=== PATIENT | female | born 2000 ===

== ENCOUNTER 2021-02-27 16:07 | Emergency (ER) | payer MEDICAID ==
[2021-02-27 16:14] VITALS: BP 139/90
[2021-02-27] MEDS ORDERED: MORPHINE 2 MG/1 ML INJ IV ONE (18:02)
[2021-02-27] MEDS ORDERED: SODIUM CHLORIDE 0.9% 1000 ML 1,000 ML IV ONE (18:02)
[2021-02-27] MEDS ORDERED: ONDANSETRON 4 MG/2 ML INJ IV ONE (18:02)
[2021-02-27] MEDS ORDERED: FAMOTIDINE 20 MG TAB PO ONE (18:02)
--- NOTE | 2021-02-27 18:05 | Emergency Department Report ---
ED N/V/D HPI - General Chief complaint: Nausea/Vomiting/Diarrhea Stated complaint: VOMITING Time Seen by Provider: 02/27/21 17:45 Source: EMS Mode of arrival: Ambulatory Limitations: No Limitations - History of Present Illness Initial comments: 20-year-old female who has no significant past medical history presents to the ER today with complaints of nausea, vomiting and diarrhea. She states that her symptoms started 3 days ago. She states that her son recently got over a stomach virus and thinks she got a stomach virus from him. She states that she has been having multiple episodes of vomiting and diarrhea. She states that she is unable to keep anything down. She reports epigastric pain. She denies any fever or chills. She denies any UTI symptoms. She states that her last menstrual cycle ended 2 days ago. She denies any recent travel, or bad food intake. She is status post cholecystectomy. MD complaint: nausea, vomiting, diarrhea, abdominal pain -: Gradual, days(s) (3) - Related Data Previous Rx's Medication Instructions Recorded Last Taken Type Famotidine [Pepcid] 20 mg PO BID #30 tablet 02/27/21 Unknown Rx Fluconazole [Diflucan TAB] 200 mg PO QDAY #1 tablet 02/27/21 Unknown Rx Hyoscyamine Subl [Levsin Sl 0.125 0.125 mg SL Q6HR PRN #20 tab 02/27/21 Unknown Rx TAB] Ondansetron [Zofran Odt] 4 mg PO Q8HR #15 tab.rapdis 02/27/21 Unknown Rx Allergies Allergy/AdvReac Type Severity Reaction Status Date / Time No Known Allergies Allergy Verified 02/27/21 16:14 ED Review of Systems ROS: Stated complaint: VOMITING Other details as noted in HPI Comment: All other systems reviewed and negative Constitutional: denies: chills, fever Eyes: denies: eye pain, eye discharge, vision change ENT: denies: ear pain, throat pain Respiratory: denies: cough, shortness of breath, SOB with exertion, SOB at rest, wheezing Cardiovascular: denies: chest pain, palpitations Gastrointestinal: abdominal pain, nausea, vomiting, diarrhea. denies: constipation, hematemesis, melena, hematochezia Genitourinary: denies: urgency, dysuria, frequency, hematuria, discharge, abnormal menses, dyspareunia Musculoskeletal: denies: back pain, joint swelling, arthralgia Skin: denies: rash, lesions, change in color, change in hair/nails, pruritus Neurological: denies: headache, weakness, paresthesias, confusion, abnormal gait, vertigo Psychiatric: denies: anxiety, depression, auditory hallucinations, visual hallucinations, homicidal thoughts, suicidal thoughts Hematological/Lymphatic: denies: easy bleeding, easy bruising, swollen glands ED Past Medical Hx - Medications Home Medications: Home Medications Medication Instructions Recorded Confirmed Last Taken Type Famotidine [Pepcid] 20 mg PO BID #30 tablet 02/27/21 Unknown Rx Fluconazole [Diflucan TAB] 200 mg PO QDAY #1 tablet 02/27/21 Unknown Rx Hyoscyamine Subl [Levsin Sl 0.125 0.125 mg SL Q6HR PRN #20 tab 02/27/21 Unknown Rx TAB] Ondansetron [Zofran Odt] 4 mg PO Q8HR #15 tab.rapdis 02/27/21 Unknown Rx ED Physical Exam - General Limitations: No Limitations General appearance: alert, in distress (patient appears uncomfortable) - Head Head exam: Present: atraumatic, normocephalic, normal inspection - Eye Eye exam: Present: normal appearance, PERRL, EOMI Pupils: Present: normal accommodation - ENT ENT exam: Present: normal exam, mucous membranes dry (mild ) - Neck Neck exam: Present: normal inspection, full ROM - Respiratory Respiratory exam: Present: normal lung sounds bilaterally. Absent: respiratory distress, wheezes, rales, rhonchi, stridor - Cardiovascular Cardiovascular Exam: Present: regular rate, normal rhythm, normal heart sounds - GI/Abdominal GI/Abdominal exam: Present: soft, tenderness (epigastric, mild ). Absent: distended, guarding, rebound - Neurological Exam Neurological exam: Present: alert, oriented X3, CN II-XII intact, normal gait - Psychiatric Psychiatric exam: Present: normal affect, normal mood ED Course Vital Signs 02/27/21 16:13 Temperature 98.4 F Pulse Rate 59 L Respiratory 16 Rate Blood Pressure 139/90 [Right] O2 Sat by Pulse 99 Oximetry ED Medical Decision Making - Lab Data Result diagrams: 02/27/21 18:06 02/27/21 18:06 - Medical Decision Making 2127: Patient now tolerating oral fluids without any further vomiting after the fluids and meds.. She has a nonsurgical abdominal exam. She is not toxic or significantly ill-appearing. She is neurologically intact with a normal gait. She is hemodynamically stable with stable vital signs. Labs reviewed --CBC unremarkable. CMP consistent with some mild dehydration but otherwise unremarkable. Urinalysis shows 15 WBCs but no bacteria, no leukocytes or nitrites. It does show yeast. Discussed all results with patient. Patient will be treated for gastroenteritis and discharged home with medication to help with symptoms including Diflucan for yeast infection. Patient instructed to follow a bland diet and continue drinking lots of fluids. At this time there is no indication for any continued emergency treatment, additional testing or admission. Patient expressed understanding for instructions and agree with plan. Patient was stable at time of discharge. Critical care attestation.: If time is entered above; I have spent that time in minutes in the direct care of this critically ill patient, excluding procedure time. ED Disposition Clinical Impression: Gastroenteritis, Dehydration, Yeast vaginitis Disposition: HOME / SELF CARE / HOMELESS Is pt being admited?: No Does the pt Need Aspirin: No Condition: Stable Instructions: Viral Gastroenteritis, Adult, Dehydration, Adult, [id number], Vaginal Yeast Infection, Adult Additional Instructions: Recommend that you take the Zofran as prescribed to help with any nausea and vomiting. Take the Levsin to help with stomach cramps as well as the Pepcid. I recommend that you try to continue increasing your intake of fluids, and following the bland diet listed on your discharge instructions. Recommend follow-up with your primary care doctor this week. Return to the ER if your symptoms worsens or changes in any way. Prescriptions: Fluconazole [Diflucan TAB] 200 mg PO QDAY #1 tablet Hyoscyamine Subl [Levsin Sl 0.125 TAB] 0.125 mg SL Q6HR PRN #20 tab PRN Reason: Abdominal cramp Famotidine [Pepcid] 20 mg PO BID #30 tablet Ondansetron [Zofran Odt] 4 mg PO Q8HR #15 tab.[email or web address] Referrals: PRIMARY CAREMD [Primary Care Provider] - 3-5 Days ELEANOR RAMIREZ MD [Staff Physician] - 3-5 Days Forms: Work/School Release Form(ED) Time of Disposition: 21:17
[2021-02-27 18:19] LABS: Basophils % (Auto) 0.5 % (0.0-1.8); Eosinophils % (Auto) 0.3 % (0.0-4.3); Hematocrit 39.2 % (30.3-42.9); Hemoglobin 12.3 gm/dl (10.1-14.3); Lymphocytes # (Auto) 0.8 K/mm3 (1.2-5.4); Lymphocytes % (Auto) 15.4 % (13.4-35.0); Mean Corpuscular HGB Conc 32 % (30-34); Mean Corpuscular Volume 72 fl (79-97); Monocytes # (Auto) 0.4 K/mm3 (0.0-0.8); Monocytes % (Auto) 6.9 % (0.0-7.3); Platelet Count 291 K/mm3 (140-440); Red Blood Count 5.43 M/mm3 (3.65-5.03); Red Cell Distribution Width 17.8 % (13.2-15.2)
[2021-02-27 18:42] LABS: Alanine Aminotransferase 16 units/L (7-56); BUN/Creatinine Ratio 30; Blood Urea Nitrogen 24 mg/dL (7-17); Calcium 9.6 mg/dL (8.4-10.2); Hemolysis Index 18
[2021-02-27 20:08] LABS: Bilirubin,Urine NEG (Negative); Blood,Urine NEG (Negative); Color,Urine Yellow (Yellow); Mucus,Urine 3+ /HPF; Renal Epithelial Cells,Urine 114 /LPF
== END 2021-02-27 21:37 | disposition home or self-care (01) ==
LOC: ED 16:07
DX: K52.9 Noninfective gastroenteritis and colitis, unspecified (principal); E86.0 Dehydration; B37.3 Candidiasis of vulva and vagina
CPT/HCPCS: 36415; 80053; 81001; 83690; 83735; 84703; 85025; 87086; 96361; 96374; 96375; 99284; J2270; J2405; J7030; Q0162